=== PATIENT | male | born 1995 | race African-American/Black ===

== ENCOUNTER 2018-09-06 09:51 | Emergency (ER) | payer SELFPAY ==
[~2018-09-06] VITALS: Ht 167.6 cm; Wt 61.2 kg
[2018-09-06] MEDS ORDERED: MORPHINE SULFATE 4 MG/ML VIAL. ONE (10:21)
[2018-09-06] MEDS ORDERED: MORPHINE SULFATE 4 MG/ML VIAL. IV ONE (10:30)
[2018-09-06 10:53] LABS: BASO # 0.1 x10^3/uL (0.0-0.2); BASO % 1 % (0-3); EOS # 0.3 x10^3/uL (0.0-0.7); EOS % 2 % (0-3); HEMATOCRIT 47.1 % (39.0-53.0); HEMOGLOBIN 15.7 g/dL (13.0-17.5); LYMPH # 2.2 x10^3/uL (1.0-4.8); LYMPH % 21 % (24-48); MEAN CORPUSCULAR HEMOGLOBIN 29 pg (25-35); MEAN CORPUSCULAR HGB CONC 33 g/dL (31-37); MEAN CORPUSCULAR VOLUME 86 fL (79-100); MONO # 0.5 x10^3/uL (0.0-1.1); MONO % 5 % (0-9); NEUT # 7.5 x10^3uL (1.8-7.7); NEUT % 71 % (31-73); PLATELET COUNT 170 x10^3/uL (140-400); RED BLOOD COUNT 5.51 x10^6/uL (4.30-5.70); RED CELL DISTRIBUTION WIDTH 13.9 % (11.5-14.5); WHITE BLOOD COUNT 10.5 x10^3/uL (4.0-11.0)
[2018-09-06 11:13] LABS: CALCIUM 9.1 mg/dL (8.5-10.1); CREATININE 0.9 mg/dL (0.7-1.3); GFR 128.9; POTASSIUM 4.1 mmol/L (3.5-5.1)
[2018-09-06 11:18] LABS: ALBUMIN 3.8 g/dL (3.4-5.0); TOTAL BILIRUBIN 0.3 mg/dL (0.2-1.0); TOTAL PROTEIN 7.7 g/dL (6.4-8.2)
--- NOTE | 2018-09-06 11:19 | RAD ---
Right upper quadrant abdominal ultrasound, 09/06/2018: HISTORY: Flank pain The gallbladder is within normal limits in size. Prominent echoes adjacent to the posterior wall are probably due to adjacent bowel. No gallstones are evident. The gallbladder wall is not thickened. The common hepatic duct is of normal caliber. There is no evidence of a hepatic mass. The visualized portions of the right kidney and pancreas are unremarkable. IMPRESSION: No significant gallbladder abnormality is detected. Electronically signed by: Alfonzo Barron MD (09/06/2018 11:16 AM) [facility]
[2018-09-06] MEDS ORDERED: MAALOX:LIDO:APAP 6:2:1 ORAL SUSPENSION 180 ML BOTTLE. PO STA (12:06)
[2018-09-06] MEDS ORDERED: PANTOPRAZOLE 40 MG TABLET.DR. PO ONE (12:45)
[2018-09-06] MEDS ORDERED: PANT40GR PO (12:56)
[2018-09-06] MEDS ORDERED: SUCR1TAB35 PO (12:56)
--- NOTE | 2018-09-06 12:56 | PHYS DOC ---
Past Medical History Past Medical History: No Pertinent History Past Surgical History: No Surgical History Alcohol Use: None Drug Use: Marijuana Adult General Chief Complaint Chief Complaint: FLANK PAIN HPI HPI Patient is a 23 year old male who presents the ER for evaluation of Epigastric abdominal pain. Waxing and waning for the past few weeks but increased over the past 2 days. Pain is increased with certain kinds of PO intake (spicy food/chocolate). No fever, no nausea, no vomiting, no diarrhea, no constipation. Has not been seen by any fever but he for this complaint. Denies any GI bleed symptoms. Pain is co nstant, 8 out of 10, sharp. Patient denies any daily ibuprofen/NSAID use or alcohol use. Review of Systems Review of Systems Constitutional: Denies fever or chills [] Eyes: Denies change in visual acuity, redness, or eye pain [] HENT: Denies nasal congestion or sore throat [] Respiratory: Denies cough or shortness of breath [] Cardiovascular: No additional information not addressed in HPI [] GI: Denies abdominal pain, nausea, vomiting, bloody stools or diarrhea [] : Denies dysuria or hematuria [] Musculoskeletal: Denies back pain or joint pain [] Integument: Denies rash or skin lesions [] Neurologic: Denies headache, focal weakness or sensory changes [] Endocrine: Denies polyuria or polydipsia [] All other systems were reviewed and found to be within normal limits, except as documented in this note. Current Medications Current Medications Current Medications Medications (Trade) Dose Ordered Sig/Annalisa Start Time Stop Time Status Last Admin Dose Admin Morphine Sulfate (Morphine Sulfate) 4 mg STK-MED ONCE 09/06/18 10:21 09/06/18 10:22 DC Multi-Ingredient Mouthwash/Gargle (Velvet Glove Oral Susp) 20 ml 1X STAT 09/06/18 12:06 09/06/18 12:11 DC 09/06/18 12:29 20 ML Pantoprazole Sodium (Protonix) 40 mg 1X ONCE 09/06/18 12:45 09/06/18 12:46 DC 09/06/18 12:29 40 MG Allergies Allergies Allergies Coded Allergies Type Severity Reaction Last Updated Verified No Known Drug Allergies 08/18/15 No Physical Exam Physical Exam Constitutional: Well developed, well nourished, no acute distress, non-toxic appearance. [] HENT: Normocephalic, atraumatic, Eyes: PERRLA, EOMI, Neck: Normal range of motion, no tenderness, supple, no stridor. [] Cardiovascular:Heart rate regular rhythm, no murmur [] Lungs & Thorax: Bilateral breath sounds clear to auscultation [] Abdomen: Bowel sounds normal, soft, mild epigastric/right upper quadrant tenderness with a rash, no masses, no pulsatile masses, no guarding or rebound tenderness [] Skin: Warm, dry, no erythema, no rash. [] Back: No tenderness, no CVA tenderness. [] Extremities: No tenderness, no cyanosis, no clubbing, ROM intact, no edema. [] Neurologic: Alert and oriented X 3, normal motor function, normal sensory function, no focal deficits noted. [] Psychologic: Affect normal, judgement normal, mood normal. [] Current Patient Data Vital Signs Vital Signs Date Time Temp Pulse Resp B/P (MAP) Pulse Ox O2 Delivery O2 Flow Rate FiO2 09/06/18 12:57 50 15 132/62 (85) 99 Room Air 09/06/18 09:53 97.0 97.0 Lab Values Laboratory Tests Test 09/06/18 10:35 White Blood Count 10.5 x10^3/uL (4.0-11.0) Red Blood Count 5.51 x10^6/uL (4.30-5.70) Hemoglobin 15.7 g/dL (13.0-17.5) Hematocrit 47.1 % (39.0-53.0) Mean Corpuscular Volume 86 fL (79-100) Mean Corpuscular Hemoglobin 29 pg (25-35) Mean Corpuscular Hemoglobin Concent 33 g/dL (31-37) Red Cell Distribution Width 13.9 % (11.5-14.5) Platelet Count 170 x10^3/uL (140-400) Neutrophils (%) (Auto) 71 % (31-73) Lymphocytes (%) (Auto) 21 % (24-48) L Monocytes (%) (Auto) 5 % (0-9) Eosinophils (%) (Auto) 2 % (0-3) Basophils (%) (Auto) 1 % (0-3) Neutrophils # (Auto) 7.5 x10^3uL (1.8-7.7) Lymphocytes # (Auto) 2.2 x10^3/uL (1.0-4.8) Monocytes # (Auto) 0.5 x10^3/uL (0.0-1.1) Eosinophils # (Auto) 0.3 x10^3/uL (0.0-0.7) Basophils # (Auto) 0.1 x10^3/uL (0.0-0.2) Sodium Level 140 mmol/L (136-145) Potassium Level 4.1 mmol/L (3.5-5.1) Chloride Level 105 mmol/L (98-107) Carbon Dioxide Level 27 mmol/L (21-32) Anion Gap 8 (6-14) Blood Urea Nitrogen 11 mg/dL (8-26) Creatinine 0.9 mg/dL (0.7-1.3) Estimated GFR (Cockcroft-Gault) 128.9 BUN/Creatinine Ratio 12 (6-20) Glucose Level 93 mg/dL (70-99) Calcium Level 9.1 mg/dL (8.5-10.1) Total Bilirubin 0.3 mg/dL (0.2-1.0) Aspartate Amino Transferase (AST) 16 U/L (15-37) Alanine Aminotransferase (ALT) 18 U/L (16-63) Alkaline Phosphatase 83 U/L (46-116) Total Protein 7.7 g/dL (6.4-8.2) Albumin 3.8 g/dL (3.4-5.0) Albumin/Globulin Ratio 1.0 (1.0-1.7) Lipase 174 U/L (73-393) Laboratory Tests 09/06/18 10:35 Laboratory Tests 09/06/18 10:35 EKG EKG [] Radiology/Procedures Radiology/Procedures GB US IMPRESSION: No significant gallbladder abnormality is detected. Electronically signed by: Alfonzo Barron MD (09/06/2018 11:16 AM) [facility] [] Course & Med Decision Making Course & Med Decision Making Pertinent Labs and Imaging studies reviewed. (See chart for details) Patient improved with medications in the ER. Patient had an reassuring labs with no acute life-threatening pathology. Patient had normal lipase, LFTS, Bilie levels. Gallbladder ultrasound with no acute findings. Patient with pain resolution after velvet glove. Suspect gastritis versus gastric ulcer. Discussed management. Patient does not have a primary care physician so will start patient on Protonix and Carafate. Patient advised to establish care with primary care physician. ER return precautions given. Patient verbalized understanding. All questions answered. Fionaon Disclaimer Selin Disclaimer This electronic medical record was generated, in whole or in part, using a voice recognition dictation system. Departure Departure Impression: Primary Impression: Epigastric abdominal pain Additional Impression: Gastritis Disposition: HOME, SELF-CARE Condition: IMPROVED Referrals: NO PCP (PCP) Patient Instructions: Gastritis, Adult Additional Instructions: Thank you for coming to [facility]. Please read the attached handouts. Establish care with a primary care physician. Return to the ER if your symptoms worsen or you have any other concerns.Please take the medications as prescribed. EAT A BLAND DIET. AVOID SPICY FOOD, CHOCOLATE, ACIDIC FOOD. Follow up with a primary care physician. Scripts Sucralfate (CARAFATE) 1 Gm Tablet 1 TAB PO QID, #120 TAB 1 Refill Prov: VERO STREETER DO 09/06/18 Pantoprazole Sodium (PROTONIX) 40 Mg 40 MG PO DAILY for 30 Days, #30 TAB Prov: VERO STREETER DO 09/06/18 Problem Qualifiers VERO STREETER DO Sep 06, 2018 12:56
[2018-09-06 12:57] VITALS: BP 132/62
== END 2018-09-06 13:16 | disposition home or self-care (01) ==
LOC: ER 09:51
DX: K29.60 Other gastritis without bleeding (principal)
CPT/HCPCS: 36415; 76705; 80053; 83690; 85025; 96374; 99285; J2270; 99284-25